=== PATIENT | female | born 1930 | race Caucasian/White ===

== ENCOUNTER 2020-11-07 11:53 | Inpatient (IN) | payer OTHER, MEDICARE ==
[~2020-11-07] VITALS: Ht 157.5 cm; Wt 53.1 kg
[2020-11-07 13:37] VITALS: BP 110/64
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
[2020-11-07 20:12] VITALS: BP 120/64
--- NOTE | 2020-11-08 03:09 | NUR ---
11-07-20 CARE TRANSFERRED 1899 OBSERVED PT SITTING IN RECLINER IN DAY ROOM. LATER PT AAOX1, VSS, RR EVEN AND NONLABORED ON RA, PT DENIES PAIN AND SI/HI. PT PRESENTS ANGRY AND WANTING TO LEAVE, AND STATING HER IS DOWNSTAIRS WAITING IN THE CARE FOR HER. PT IS [place]SH[place]TA AND READ LIPS USED BOARD TO COMMUNICATE, PT BECAME AGITATED AND WAS SLAPPING AT STAFF. HCP CONSULTED AND ORDERS RECEIVED, ATTEMPTED TO ADMIN PO MEDICATION, PT REFUSED MEDICATION AND AGITATION INCREASED, IM WAS DELIVERED PER HCP ORDERS WITH A BUBBA HOLD BY SECURITY. PT CONTINUE TO INCREASE IN AGITATION AND COMBATIVE WITH STAFF AND HCP WAS CONTACTED ORDERS RECEIVED AND ADMIN WITH BUBBA HOLD BY STAFF. PT CONTINUE TO SLAP AND GRAB STAFF. LATER NOTED PT CALM BUT STILL RESTLESS. LITTLE LATER NOTED PT RESTING WITH EYES CLOSED. PT WILL CONTINUE TO BE MONITOR PER [facility].
[2020-11-08 09:23] VITALS: BP 140/64
[2020-11-08 10:01] VITALS: BP 140/64
--- NOTE | 2020-11-08 12:08 | NUR ---
LINDA and Dr. Gordon spoke with DPOA Aleksander Riddle and provided to him an update as well as obtained background info on pt. He said he wants help identifying placement for pt, and has identified some options such aw [facility], [facility], and [facility]. SW team will continue to follow pt during her stay on this unit.
--- NOTE | 2020-11-08 13:37 | NUR ---
New admit to [facility]. Noted with agressive behavior upon admit, staff reports combative and PRN meds given for mood. Pt sleeping most last night and today d/t shots given. No PO intake thus far. 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 Low nutrition risk at this time with interventions initiated.
--- NOTE | 2020-11-08 14:25 | NUR ---
Assumed pt care at 0700. pt was in the day room sleeping. pt was sleeping but arousable. AM meds were administered crushed with yogurt, no difficulty notED. pt ambulates with a charles chair. PT was unable to eat breafast and lunch. No sign of acute distress noted. No sign of si/hi, no sign of pain NOTED. Incontinent x2 at this time. At this time pt is sleeping on the Charles chair. will continue to MONITOR.
[2020-11-08 16:22] VITALS: BP 119/71
--- NOTE | 2020-11-09 02:46 | NUR ---
11-08-20 CARE TRANSFERRED 1900 OBSERVED PT SITTING IN DAY ROOM. LATER PT AAOX2, VSS, RR EVEN AND NONLABORED ON RA. PT PRESENTS CALM AND COOPEATIVE, PT DENIES PAIN AND SI/HI. PT REPORTED SHE IS READY TO GO HOME. DURING MEDICATION ADMIN PT HAD NO DIFFICULTIES TAKING MEDICTION WHOLE WITH WATER, PT REPORTED THAT SHE HAD LOST HER HEARING AID. PT IS EFFECIENT IN LIP READING AND WILL USE COMMUNICATION BOARD. LATER PT BED WAS ADJUSTED FOR COMFORT, LOWEST POSITION, LOCKED AND ALARM ON. PT WILL CONTINUE TO BE MONITOR PER [facility].
[2020-11-09 05:23] LABS: CHOLESTEROL 160 mg/dL (<200); HDL CHOLESTEROL 47 mg/dL (>40); LDL CHOLESTEROL 93 mg/dL (<100); TC:HDL 3.4 Ratio (Not establshd); TRIGLYCERIDE 100 mg/dL (<150); VLDL 20 mg/dL (<40)
[2020-11-09 05:44] LABS: SERUM ASSESSMENT Clear
[2020-11-09 09:45] LABS: ABSOLUTE NEUTROPHILS 3.9 thou/uL (1.4-8.2); BASOPHILS 0.8 % (0.0-2.0); EOSINOPHILS 7.3 % (0.0-3.0); HEMATOCRIT 34.7 % (37.0-47.0); HEMOGLOBIN 11.3 gm/dL (12.0-15.0); LYMPHOCYTES 29.3 % (24.0-44.0); MCH 29.4 pg (26.0-34.0); MCHC 32.6 g/dL (28.0-37.0); MCV 90.3 fL (80.0-100.0); MONOCYTES 12.1 % (1.0-8.0); PLATELET COUNT 291 thou/uL (150-400); POLYS 50.5 % (36.0-66.0); RBC 3.84 mil/uL (4.20-5.00); RDW 16.5 % (10.5-14.5); WBC 7.7 thou/uL (4.0-11.0)
[2020-11-09 09:59] LABS: ALBUMIN 3.6 g/dL (3.4-5.0); ANION GAP 9 mmol/L (7-16); BUN 35 mg/dL (7-18); CALCIUM 10.2 mg/dL (8.5-10.1); CHLORIDE 98 mmol/L (98-107); CO2 27 mmol/L (21-32); CREATININE 1.4 mg/dL (0.6-1.0); GLUCOSE 118 mg/dL (74-106); POTASSIUM 4.8 mmol/L (3.5-5.1); SGOT 25 U/L (15-37); SGPT 26 U/L (14-59); SODIUM 134 mmol/L (136-145); TOTAL BILIRUBIN 0.2 mg/dL (0.2-1.0); TOTAL PROTEIN 7.4 g/dL (6.4-8.2)
--- NOTE | 2020-11-09 14:05 | NUR ---
SW sent referrals for pt to [facility], and [facility]. SW team will continue to follow pt during her stay on this unit.
--- NOTE | 2020-11-09 15:27 | NUR ---
ASSUMED PATIENT CARE 0700, PATIENT WAS SLEEPING IN BED IN ROOM 519A, GOT PATIENT UP TO EAT BREAFAST, SHE IS CALM AND COOPERATIVE, ALERT AND ORIENTED X3 ASSESSMENT COMPLETED, ACTIVE BOWEL SOUND, LUNGS CLEAR, B/P HIGH THIS MORNING 174/73, 100, 18, 96.0, 99 02 JARED. LATER RECHECKED 159/77,97,18,98 02STAS. SHE TOOK HER MEDICATION WHOLE. AMBULATE WITH OUT ANY DEVICE, PATIENT WENT BACK TO SLEEP AFTER ASSESSMENT AND REFUSED TO GET UP FOR LUNCH, SHE DENIES SI/HI, WILL CONTINUE TO MONITOR PATIENT.
--- NOTE | 2020-11-09 15:57 | NUR ---
ASSUMED PATIENT CARE 0700, PATIENT SITTING IN THE DAY DAY, ALERT AND ORIENTED X2, CALM AND COOPERATIVE DURING ASSESSMENT,ATE BREAKAST, LOW BLOOD PRESSURE, 95/73, HER B/P MEDICATION WAS HELD, SHE TAKE MEDICATION WHOLE, AMB WITH WALKER [facility] CLEAR BOWEL SOUND ACTIVE, PATIENT IS HARD OF HEARING, ATTENDS GROUP, DENIES SI/HI. WILL CONTINUE TO MONITOR PATIENT.
[2020-11-09 19:18] VITALS: BP 123/54
[2020-11-09 20:10] VITALS: BP 123/54
[2020-11-10 00:06] LABS: GLYCOHEMOGLOBIN (HGB A1C) 6.6 % (4.8-5.6)
--- NOTE | 2020-11-10 03:48 | NUR ---
PATIENT CARE WAS RESUMED AT 1900.SHE IS ALERT AND CONFUSSED. MODERATE ASSIST WITH CARE. ABLE TO VERBALIZED NEEDS VIA WRITTEN COMMUNICATION DUE TO SHOALWATER. SHE DENIES PAINS AND CONTINIET OF BOWEL AND BLADDER. SHE AMBULATES WITH A STABDBY ASSIST. PATIENT OVERESTIIMATES ABILITY. NURSE CONTINUE TO EDUCATE ABOUT FALL WITH POOR UNDERSTANDING AND COMPLIANCE FROM PATIENT. BED IS LOW, LOCKED AND ALARMED.SHE DENIES SI/AVH/HI. Q 12MINUTES CHECK ONGOING.
[2020-11-10 09:42] VITALS: BP 116/38
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
--- NOTE | 2020-11-10 17:12 | NUR ---
REFUSED TO GET OUT OF BED DESPITE MULTIPLE ATTEMPTS BY VARIOUS STAFF. REMAINED IN BED UNTIL APPROX 1430 WHEN ASSISTED TO DAYROOM WITH ROLLER WALKER AND ASSIST X1-DID SIT UP AND TAKE AM MEDICATION WITH EXCEPTION OF MIRALAX WHICH SHE REFUSED-AM NORVASC HELD FOR BP 116/38-DR TRAN NOTIFIED DURING ROUNDS.DYSPHORIC MOOD-IRRITABLE WITH STAFF WHE REAPPROACHED TO GET OUT OF BED-YANKING COVERS OVER HEAD AND YELLING "GET OUT" "NO" AND "GO AWAY"ALSO NOTED TO BE RUBBING RIGHT SHOULDER AND HAS HAD SOME FACIAL GRIMACING WITH MOVEMENT ONCE OUT OF BED. OFFERED TYLENOL BUT SHAKES HEAD NO-WILL VERBALIZE 1-2 WORDS TO GET NEEDS MET OTHERWISE NON-VERBAL. INCONTINENT OF LARGE AMNOUNT OF URINE BUT WAS COOPERATIVE WITH PARTIAL BATH AND INCONTINENT CARE. GAIT IS VERY UNSTEADY AND REMAINS HIGH FALLS RISK AT SUPPER TIME AFTER EATING STOOD UP ABRUPTLY WITH INTENTION OF WALKING TO ROOM BY SELF-TRIGGERING BED EXIT ALARM. BS ACTIVE X4-ABDOMEN SOFT- NON-TENDER. ATE BITES OF BREAKFAST AND ALL OF ENSURE WITH MUCH COAXING AND CAJOLING. REFUSED LUNCH BUT ATE 100 PERCENT OF SUPPER.
[2020-11-10 20:31] VITALS: BP 134/42
[2020-11-11 00:33] VITALS: BP 134/42
--- NOTE | 2020-11-11 03:22 | NUR ---
11/10/20- Pt is Alert and pleasant sitting at table in day room watching TV. Pt took her medications whole without difficulty, Pt smiles at nurse and held a conversation with this nurse. Pt denies SI/HI/AH/VH. Pt went to bed at approx 2230. will continue to monitor throughout shift.
[2020-11-11 08:53] LABS: ABSOLUTE NEUTROPHILS 3.5 thou/uL (1.4-8.2); BASOPHILS 0.7 % (0.0-2.0); EOSINOPHILS 7.9 % (0.0-3.0); HEMATOCRIT 34.2 % (37.0-47.0); HEMOGLOBIN 11.1 gm/dL (12.0-15.0); LYMPHOCYTES 28.7 % (24.0-44.0); MCH 29.4 pg (26.0-34.0); MCHC 32.6 g/dL (28.0-37.0); PLATELET COUNT 294 thou/uL (150-400); POLYS 50.7 % (36.0-66.0); RBC 3.79 mil/uL (4.20-5.00); RDW 16.4 % (10.5-14.5); WBC 6.9 thou/uL (4.0-11.0)
[2020-11-11 09:09] LABS: ALBUMIN 3.5 g/dL (3.4-5.0); CALCIUM 9.5 mg/dL (8.5-10.1); CREATININE 1.4 mg/dL (0.6-1.0); MAGNESIUM 2.1 mg/dL (1.8-2.4); PHOSPHORUS 4.5 mg/dL (2.5-4.9); POTASSIUM 4.2 mmol/L (3.5-5.1); TOTAL BILIRUBIN 0.3 mg/dL (0.2-1.0); TOTAL PROTEIN 7.4 g/dL (6.4-8.2)
[2020-11-11 10:14] VITALS: BP 122/44
--- NOTE | 2020-11-11 12:40 | NUR ---
HAS BEEN SITTING QUIETLY IN DAYROOM SO FAR THIS SHIFT-DOES ATTEND AND PARTICIPATE IN SCHEDULED RT GROUP. STRUCTURES FREE TIME WORKING ON WORD SEARCH PUZZLES AND LOOKING AT MAGAZINES-WILL OCCASSIONALY REMARK ON STORIES AND TOPICS SEEN ON TELEVISION IN DAYROOM-IE COMMENTED TO THIS NURSE ON NEW STORY WITH CAPTIONS ADDRESSING SHORTAGE OF [place] IN US D/T DROUGHT CONDITIONS STATING "I HAD A BIG GARDEN"VERY GOOD APPETTITE-CONSUMING MAJORITY OF FOOD ON TRAY IN ADDITION TO SUPPLEMENTS ON TRAY. NO NOTED FACIAL GRIMACING WITH MOVEMENT NOTED ON PREVIOUS SHIFTS AND DENIES PAIN DURING AM ASSESSMENT. REMAINS HIGH FALLS RISK WITH FALLS PRECAUTIONS IN PLACE-INCLUDING CHAIR AND BED ALARM IN ADDITION TO YELLOW T-SHIRT AND SOCKS. COOPERATIVE WITH REQUESTS FROM STAFF-COMPLIENT WITH MEDS AND CARES-DOES REQUIRE MOD ASSIST AND ROLLER WALKER TO AMBULATE TO/FROM ROOM.
[2020-11-11 19:19] VITALS: BP 106/80
[2020-11-11 20:00] VITALS: BP 106/80
--- NOTE | 2020-11-12 03:53 | NUR ---
PATIENT CARE WAS RESUMED AT 1900. SHE WAS IN THE DAY AREA SITTING ON A CHAIR. SHE IS ALERT AND ORINTED X3. SHE IS [place] AND NURSE COMMUNICATED VIA WRITTING WITH GOOD RESPONSES. SHE C/O PAINS TO HER KNEES AND PRN PAIN MED WAS GIVEN WITH SOME GOOD EFFECT. LUNGS ARE CLEAR , BS ACTIVE X4 QUAD, ABD IS SOFT NONE TENDER. SHE TOOK HER MEDS WHOLE.SHE DENIES SI/AVH/HI.SHE IS SLEEPING AT THIS TIME. BED IS LOW, LOCKED AND ALARMED. Q 12MINUTES ONGOING. YELLOW SHIRT AND NONS SKID SOCKS ON.NO BEHAVOIR NOTED AT THIS TIME. CONTINUE CARE.
[2020-11-12 09:43] VITALS: BP 114/54
--- NOTE | 2020-11-12 11:40 | NUR ---
Assumed pt care at 0700. Pt was in the day room awake. Alert and oriented to person and situation. Calm and cooperative with care. Assessments completed, vss. Denies si/hi, denies pain at this time. No sign of acute distress noted upon assessments. Took meds whole, no difficulty noted. Ambulates with a steady gait. Pt was irritable and confused at approximately 0945. pt was redirected. Pt son called for update. Pt is assist x1. pt makes need known to staff. AT THIS TIME PT IS IN THE DAY ROOM. WILL CONTINUE TO MONITOR.
--- NOTE | 2020-11-12 13:43 | NUR ---
LINDA and Dr. Koroma participated in a family meeting with Aleksander and Carley. Medications and placement were discussed. Aleksander stated he had been talking to [facility] and would like to pursue placement with this facility. Aleksander speaking to [facility]. The family had no other questiosn or concerns at this time.
--- NOTE | 2020-11-12 14:11 | NUR ---
LINDA emailed a referral to Cristy at [facility] [email or web address]). LINDA also spoke with Cristy concerning placement. Cristy set up a zoom to complete an assessment today at 1500. Also sent over and admissions form to be completed. LINDA will continue to follow
[2020-11-12 20:09] VITALS: BP 119/56
--- NOTE | 2020-11-13 05:45 | NUR ---
PATIENT CARE WAS RESUMED AT 1900. SHE IS ALERT AND ORIENTED. ABLE TO VERBALIZE HER NEEDS BUT [place]. SHE DENIES SI/AVH/HI. AMBULATES WITH WALKER. CONTINENT OF BOWEL AND BLADER. SHE COMMUNICATE VIA WRITTING BOARD. YELLOW TOP AND SOCK ARE ON. BED IS LOW ALARMED AND LOCKED. BS ACTIVE X 4QUAD. Q 12MINUTES CHECK ONGOING. CONTINUE CARE AND MONITOR
[2020-11-13 09:25] VITALS: BP 128/53
--- NOTE | 2020-11-13 15:32 | NUR ---
Assumed pt care at 0700. pt was in the day room awke. Alert and oriented to person and situation. Calm and cooperative with care and assessments. Denies si/hi, denies pain. Assessments completed, vss. Took meds whole no difficulty noted. Ambulates with a walker. Pt was agitated but was redirectable. At this time pt is in the day room participating in activities. Will continue to monitor pt.
--- NOTE | 2020-11-13 16:45 | NUR ---
LINDA faxed to [facility] the physician's form and an enactment letter from Dr. Gordon. SW team will continue to follow pt during her stay on this unit.
[2020-11-13 20:00] VITALS: BP 116/31
[2020-11-13 21:00] VITALS: BP 116/31
--- NOTE | 2020-11-14 04:35 | NUR ---
PATIENT CARE WAS RESUMED AT 1900. SHE WAS SITTING AT THE TABLE COLORING . SHE IS UNITED [place] AND NURSE COMMUNICATED VIS WRITING BARD.SHE IS ALERT AND ORIENTED. SHE IS ABLE TO VERBALIZE SARAH NEEDS. SHE DENIE ,SI/ AVH AND HARM T SELF .SHE AMBULATES AND CONTINENT F BOWEL AND BLADER. SHE CONTINUES TO G BACK AND FORT FROM ROOM AND NOT SLEEPING.PRN MELATONIN WAS GIVEN WITHOUT EFFECT. SHE HAS A YELLOW SOCKS AND TOP ON. BED IS LOW, ALARMED AND LOCKED.
[2020-11-14] MEDS ORDERED: LOPRESSOR50 PO (09:27)
[2020-11-14] MEDS ORDERED: METHOTREXATE 22.5 MG PO (09:27)
[2020-11-14] MEDS ORDERED: NORVASC5 MG PO (09:28)
[2020-11-14] MEDS ORDERED: OLANZAPINE2.5 MG PO (09:29)
[2020-11-14] MEDS ORDERED: MIRALAX17 GM PO (09:30)
[2020-11-14] MEDS ORDERED: CALTRATE-600 W1 EACH PO (09:30)
[2020-11-14] MEDS ORDERED: GLUCOTROL5 MG PO (09:31)
[2020-11-14] MEDS ORDERED: PROTONIX 20 MG20 M1 PO (09:31)
[2020-11-14] MEDS ORDERED: SYNTHROID125 MC1 PO (09:32)
[2020-11-14] MEDS ORDERED: FOLIC ACID1 MG PO (09:33)
[2020-11-14] MEDS ORDERED: B-12500 MCG PO (09:33)
--- NOTE | 2020-11-14 09:56 | NUR ---
PATIENT WAS UP, AND OUT IN DAYROOM WHEN CARE ASSUMED. PATIENT AMBULATE WITH ASSIST OF WALKER, GAIT SLIGHTLY UNSTEADY. PATIENT TOOK ALL MEDICATION WHOLE WITHOUT DIFFICULTY, SHE IS EATING MEALS, AND DRINKING FLUID WELL. PATIENT IS ALERT, AND ORIENTED X 1 -SELF, SHE IS FORGETFUL, AND CONFUSED. PATIENT IS DELUSIONAL, ATTEMPTING TO PICK-UP SHOES FROM THE FLOOR WHILE THERE WAS NO SHOES ON THE FLOOR, SHE IS REDIRECTABLE THOUGH. PATIENT DENIES SUICIDAL/HOMICIDAL IDEATION, NOT ABLE TO APPROPRIATELY RESPOND TO FURTHER ASSESSMENT QUESTIONS DUE TO COGNITIVE IMPAIRMENT. NO AGGRESSION OR AGITATION NOTED AT THIS TIME. PATIENT DISCHARGED TO [facility] TODAY BY DR. WILLIAMSON. THIS NURSE ATTEMTED TO CALL REPORT, SPOKE WITH MARK CURRY), (SACHA) THE ADMISSION COORDINATOR, WHO NOTIFIED THIS FIELD ASSESSOR THAT PATIENT WAS DENIED ADMISSION TO THEIR FACILITY. PERMIT COORDINATOR NOTIFIED. PERMIT COORDINATOR GAVE ANOTHER NUMBER TO CALL REPORT. THIS FIELD ASSESSOR CALLED THE NUMBER, SPOKE WITH (MEE) WHO TRANSFERED MY TO ([facility]IS[facility]), AND THEY HANG UP THE PHONE.
[2020-11-14 10:29] VITALS: BP 132/58
--- NOTE | 2020-11-14 11:11 | NUR ---
LINDA received a call from Nurse Ferguson stating that she attempted to give report to [facility] and was told that pt was denied. LINDA contacted [facility] and spoke to [facility] who answered the phone. She said she is unsure who said that but she said that pt is indeed having her things moved in today and she has been accepted; she said she did receive the fax LINDA sent last night. LINDA explained that nursing staff there has been refusing to accept report from her. She said the DON is in a meeting but will call LINDA back. LINDA relayed this info to nursing staff. LINDA team will continue to follow pt during her stay on this unit.
--- NOTE | 2020-11-14 11:17 | NUR ---
LINDA D/C NOTE LINDA faxed d/c documents to [facility] Sen. Kimberlee. LINDA will file docs in pt's hospital file. LINDA received a call from [facility] stating that the facility is refusing to accept pt. LINDA contacted [facility] Sen. Kimberlee and spoke to Irma and RAMIN on conference call; EM took pt to the rehab side and not the Sen. Living side. Irma gave directions and EM was on the way. Irma confirmed she received pt's d/c docs. LINDA received a call from Susanne who said that she is not sure what happened to to her knowledge all staff knew pt was coming. She thanked LINDA for sending all necessary docs. No other needs for LINDA team to address at this time.
--- NOTE | 2020-11-16 08:31 | D ---
[facility] [place] [address] DISCHARGE SUMMARY Name: NITIN ARRIAGA Room #: 519A-A [facility] IN M.R.#: [id number] Admission: 11/07/20 Attend Phys: Anton Gordon DO Discharge: 11/14/20 Date of : [birth year] Report #: [id number] THIS REPORT FOR: cc: Yong Spain MD, Paul G. MD Kerstein, Andrew H. DO ~ DATE OF SERVICE: 11/14/2020 INPATIENT PSYCHIATRIC DISCHARGE SUMMARY ATTENDING PSYCHIATRIST: Anton Gordon DO LICENSED LAND SURVEYOR: At time of discharge, Anton Pate MD. DISCHARGE DIAGNOSIS: As follows: Major neurocognitive disorder, likely due to Alzheimer's disease with behavioral disturbance, improved. MEDICAL COMORBIDITIES: As follows: Mild anemia, mildly elevated hemoglobin A1c, hypertension, hypothyroidism, rheumatoid arthritis, gastroesophageal reflux disease. The patient is discharged to [facility]. Psychiatric medical care by receiving facility. The patient uses a walker to ambulate. ACTIVITY LEVEL: As tolerated. The patient requires 24 x 7 supervision. DIET: Regular. She has been getting supplement Ensure Enlive between meals and Ensure pudding between meals. Her BMI was 21.4. 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 Glipizide 2.5 mg oral daily with breakfast for diabetes, levothyroxine 125 mcg oral daily for hypothyroidism, B12 1000 mcg oral daily for supplementation, folic acid 1 mg oral daily for supplementation. LABORATORY DATA: Additionally, laboratories this admission: Most recent lab on 11/11/2020, H and H 11.1 and 34.2, white count 6.9, platelet count 294. Chemistries: Sodium 136 on 11/11/2020, potassium 4.2, chloride 100, bicarbonate 20, anion gap 8, BUN 39, creatinine 1.4, estimated GFR 35, glucose 139, A1c 6.6, calcium 9.5, phosphorus 4.5, magnesium 2.1, AST 28, ALT 26, alkaline phosphatase 58, total protein 7.4, albumin 3.5. Triglycerides 100. Cholesterol 160, LDL 93, HDL 47. B12 level 1932. TSH 0.530. COVID-19 [facility] test on 11/13/[address] [address] DISCHARGE SUMMARY Name: NITIN ARRIAGA Room #: 519A-A DIS IN M.R.#: [id number] Admission: 11/07/20 Attend Phys: Anton Gordon DO Discharge: 11/14/20 Date of : [birth year] Report #: [id number] negative as well as one done on 11/07/2020 for admission. REASON FOR ADMISSION: Back on 11/07/2020, sent here from [facility]. She had been living with her son Aleksander. She was admitted to [facility] for progressive agitation. HOSPITAL COURSE: The patient was admitted to Geriatric Psychiatry Unit. Regarding interventions for this patient, fairly straightforward in a sense the patient was started on olanzapine 2.5 mg twice daily with IM backup. This was later titrated to 3.75 mg twice daily. Her mood became more stable. She engaged with activities. She does have significant hearing loss and really the [place] marker board was most useful to communicate with her. She did not having any major behavioral issues on the unit. On the day of discharge, the patient was in stable condition. PHYSICAL EXAMINATION: VITAL SIGNS: Temperature 36.2, pulse 58, respirations 16, BP 132/58, O2 sat 95%. MUSCULOSKELETAL: Assisted gait with a walker. MENTAL STATUS EXAMINATION: This is a well-developed, ill-appearing female, appearing stated age. Attention, concentration limited. Speech intermittently dysarthric which is her baseline.mood/affect- calm, constricted No psychomotor agitation, no psychomotor retardation. Denied auditory, visual, or tactile hallucinations. Mood was euthymic, congruent. Memory not formally tested. Insight and judgment quite limited. Fund of knowledge diminished. PROGNOSIS: Guarded given the age of 89, having a neurodegenerative disorder. <ELECTRONICALLY SIGNED> By: Anton Gordon DO 11/16/20 [id number] 15 Anton Gordon DO /nt
== END 2020-11-14 10:10 | DRG 57 ==
LOC: ER 11:53 → SBH 12:53 → ER 12:53 → SBH 13:13
PROVIDERS: Internal Medicine; ADMIT Psychiatry & Neurology Psychiatry; ATTEND Psychiatry & Neurology Psychiatry
DX: G30.9 Alzheimer's disease, unspecified (principal); F02.81 Dementia in other diseases classified elsewhere, unspecified severity, with behavioral disturbance; D64.9 Anemia, unspecified; I10 Essential (primary) hypertension; E03.9 Hypothyroidism, unspecified; K21.9 Gastro-esophageal reflux disease without esophagitis; M06.9 Rheumatoid arthritis, unspecified; E11.9 Type 2 diabetes mellitus without complications; E78.5 Hyperlipidemia, unspecified; M19.90 Unspecified osteoarthritis, unspecified site; R53.81 Other malaise; Z66 Do not resuscitate; Z20.822 Contact with and (suspected) exposure to COVID-19; Z88.8 Allergy status to other drugs, medicaments and biological substances; Z88.1 Allergy status to other antibiotic agents; Z85.51 Personal history of malignant neoplasm of bladder; Z90.49 Acquired absence of other specified parts of digestive tract; Z88.0 Allergy status to penicillin
CPT/HCPCS: 10880